=== PATIENT | female | born 1990 | race American Indian/Alaskan Native ===

== ENCOUNTER 2019-05-01 11:00 | Outpatient (CLI) | payer MEDICAID | END 2019-05-01 15:16 | disposition home or self-care (01) | LOC: LAB 11:00 → TRG 14:35 → LAB 15:16 | PROVIDERS: ATTEND Obstetrics & Gynecology | DX: O26.893 Other specified pregnancy related conditions, third trimester (principal); O99.513 Diseases of the respiratory system complicating pregnancy, third trimester; J45.909 Unspecified asthma, uncomplicated; Z67.11 Type A blood, Rh negative; Z87.891 Personal history of nicotine dependence; Z3A.29 29 weeks gestation of pregnancy | CPT/HCPCS: 86850; 86900; 86901; 96372; J2790 ==

== ENCOUNTER 2019-06-30 10:33 | Outpatient (CLI) | payer MEDICAID ==
[2019-06-30 10:56] VITALS: BP 126/79
--- NOTE | 2019-06-30 13:07 | Ultrasound Report ---
LIMITED OB ULTRASOUND HISTORY: . Check TIMMY COMPARISON: None. TECHNIQUE: Mckee scale sonographic images were obtained of the pelvis using transabdominal ultrasound. FINDINGS: Single intrauterine . Cardiac activity is regular rate at146 beats per minute. Presentation: vertex TIMMY equal 9.8 Additional findings: None. IMPRESSION: 1. Live single intrauterine gestation with normal amniotic fluid. Signer Name: Oracio Morgan MD Signed: 06/30/2019 1:03 PM Workstation Name: [id number]
== END 2019-06-30 13:25 | disposition home or self-care (01) ==
LOC: TRG 10:33
PROVIDERS: ATTEND Obstetrics & Gynecology
DX: O47.1 False labor at or after 37 completed weeks of gestation (principal); Z87.891 Personal history of nicotine dependence
CPT/HCPCS: 59025; 76815

== ENCOUNTER 2019-07-12 01:40 | Outpatient (CLI) | payer MEDICAID ==
[2019-07-12 02:19] VITALS: BP 125/72
--- NOTE | 2019-07-12 02:38 | Ultrasound Report ---
ULTRASOUND BIOPHYSICAL PROFILE AND LIMITED OB PELVIC ULTRASOUND INDICATION / CLINICAL INFORMATION: well-being. COMPARISON: 06/30/2019. FINDINGS: BREATHING MOVEMENT = 2 GROSS BODY MOVEMENT = 2 TONE = 2 QUALITATIVE AMNIOTIC FLUID VOLUME = 2 TOTAL BIOPHYSICAL SCORE = 8/8 AMNIOTIC FLUID INDEX (cm) = 12.6 PRESENTATION: Cephalic. HEART RATE (beats per minute): 122 The placenta is located anteriorly and is grade 3. The estimated sonographic gestational age is 38 we eks 4 days. The estimated weight is 3531 +/- 523 g. IMPRESSION: 1. biophysical profile = 8/8 2. Single viable 38 week 4 day intrauterine . Signer Name: Dennys Li MD Signed: 07/12/2019 2:34 AM Workstation Name: [id number]
== END 2019-07-12 03:05 | disposition home or self-care (01) ==
LOC: TRG 01:40
PROVIDERS: ATTEND Obstetrics & Gynecology
DX: O47.03 False labor before 37 completed weeks of gestation, third trimester (principal); Z3A.38 38 weeks gestation of pregnancy
CPT/HCPCS: 59025; 76816; 76819